=== PATIENT | female | born 1975 | race Caucasian/White ===

== ENCOUNTER → 2023-12-01 14:56 | Outpatient (REF) | payer OTHER, SELFPAY | LOC: WDC 14:56 | PROVIDERS: ATTENDING PHYSICIAN Obstetrics & Gynecology; FAMILY PHYSICIAN Family Medicine | DX: R92.2 Inconclusive mammogram (principal) | CPT/HCPCS: 76641 ==

== ENCOUNTER → 2024-04-13 14:34 | Outpatient (REF) | payer OTHER, SELFPAY | LOC: WDC 14:34 | PROVIDERS: ATTENDING PHYSICIAN Obstetrics & Gynecology; FAMILY PHYSICIAN Family Medicine | DX: Z12.31 Encounter for screening mammogram for malignant neoplasm of breast (principal) | CPT/HCPCS: 77063; 77067 ==

== ENCOUNTER → 2024-04-21 08:16 | Outpatient (REF) | payer OTHER, SELFPAY | LOC: WDC 08:16 | PROVIDERS: ATTENDING PHYSICIAN Obstetrics & Gynecology; FAMILY PHYSICIAN Family Medicine | DX: R92.8 Other abnormal and inconclusive findings on diagnostic imaging of breast (principal) | CPT/HCPCS: 76642 ==

== ENCOUNTER → 2024-05-13 07:37 | Outpatient (REF) | payer OTHER, SELFPAY | LOC: HWRAD 07:37 | PROVIDERS: ATTENDING PHYSICIAN Otolaryngology; FAMILY PHYSICIAN Family Medicine | DX: J01.01 Acute recurrent maxillary sinusitis (principal) | CPT/HCPCS: 70486 ==

== ENCOUNTER → 2024-06-30 11:46 | Outpatient (REF) | payer OTHER, SELFPAY | LOC: DHSLP 11:46 | PROVIDERS: ATTENDING PHYSICIAN Otolaryngology; FAMILY PHYSICIAN Family Medicine | DX: G47.33 Obstructive sleep apnea (adult) (pediatric) (principal) | CPT/HCPCS: 95806 ==